=== PATIENT | male | born 1960 | race Caucasian/White ===

== ENCOUNTER 2016-10-11 20:35 | Emergency (ER) | payer MEDICAID ==
[~2016-10-11] VITALS: Ht 172.7 cm; Wt 88.0 kg
[2016-10-11 20:37] VITALS: BP 161/95
== END 2016-10-11 22:36 | disposition left against medical advice (07) ==
LOC: ED 22:06
DX: R05 Cough (principal)
CPT/HCPCS: 99281

== ENCOUNTER 2016-10-21 12:17 | Emergency (ER) | payer MEDICAID ==
[~2016-10-21] VITALS: Ht 172.7 cm; Wt 85.1 kg
[2016-10-21 13:03] VITALS: BP 145/89
== END 2016-10-21 13:05 | disposition home or self-care (01) ==
LOC: ED 12:59
DX: R06.00 Dyspnea, unspecified (principal)
CPT/HCPCS: 93005; 99283

== ENCOUNTER 2017-07-28 11:03 | Emergency (ER) | payer MEDICAID ==
[~2017-07-28] VITALS: Ht 175.3 cm; Wt 74.6 kg
[2017-07-28 11:06] VITALS: BP 139/88
[2017-07-28 12:09] LABS: BASOPHILS # (AUTO) 0.04 x10^3/uL (0-0.1); BASOPHILS % (AUTO) 1 % (0-1); EOSINOPHILS # (AUTO) 0.06 x10^3/uL (0-0.4); EOSINOPHILS % (AUTO) 1 % (1-7); LYMPHOCYTES # (AUTO) 1.68 x10^3/uL (1-3.4); LYMPHOCYTES % (AUTO) 32 % (22-44); MD NO; MEAN CORPUSCULAR HEMOGLOBIN 21.2 pg (27.5-34.5); MEAN CORPUSCULAR HGB CONC 31.7 g/dL (33.2-36.2); MEAN PLATELET VOLUME 6.7 fL (7.4-10.4); MONOCYTES % (AUTO) 12 % (2-9); NEUTROPHILS # (AUTO) 2.83 x10^3/uL (1.8-6.8); NEUTROPHILS % (AUTO) 54 % (42-75); PLATELET COUNT 317 x10^3/uL (130-400); RED BLOOD COUNT 6.22 x10^6/uL (4.38-5.82); RED CELL DISTRIBUTION WIDTH 15.8 % (9.4-14.8)
[2017-07-28 12:21] LABS: ALBUMIN 4.1 g/dL (3.4-5.0); ANION GAP 4 mmol/L (5-15); CALCIUM 8.4 mg/dL (8.5-10.1); CHLORIDE 106 mmol/L (98-107); CREATININE 1.06 mg/dL (0.7-1.3)
[2017-07-28 13:24] LABS: MICROSCOPIC NOT IND
[2017-07-28 13:26] LABS: CULTURE INDICATED? NO
== END 2017-07-28 13:57 | disposition home or self-care (01) ==
LOC: ED 13:25
DX: K40.20 Bilateral inguinal hernia, without obstruction or gangrene, not specified as recurrent (principal)
CPT/HCPCS: 36415; 74022; 80048; 81003; 82040; 85025; 99285